=== PATIENT | female | born 1960 | race Caucasian/White ===

== ENCOUNTER → 2017-03-20 | Outpatient (CLI) | payer BC ==
[~2017-03-20] MED LIST: BIOTIN PO; CRAN1TAB5 PO; LISI-170 PO; MULT1TAB9 PO; OM-31CAP4 PO; VITAMIN B12 PO
== END | disposition home or self-care (01) ==
LOC: CFH 07:10
PROVIDERS: ATTEND Family Medicine
DX: Z13.820 Encounter for screening for osteoporosis (principal); E04.1 Nontoxic single thyroid nodule; N95.1 Menopausal and female climacteric states; R05 Cough; R06.2 Wheezing; Z78.0 Asymptomatic menopausal state
CPT/HCPCS: 71046; 76536; 77080

== ENCOUNTER 2018-01-07 10:54 | Inpatient (IN) | payer BC ==
[~2018-01-07] VITALS: Ht 177.8 cm; Wt 86.2 kg
[2018-01-07] MEDS ORDERED: LEVO25TA4 PO (11:29)
[2018-01-07] MEDS ORDERED: CHOL400C11 PO (11:30)
[2018-01-07] MEDS ORDERED: OMNIPAQUE 350 MG/ML, 100ML BOTTLE ONE (12:15)
[2018-01-07 12:46] LABS: MEAN CORPUSCULAR HEMOGLOBIN 27.5 pg (27.0-34.8); MEAN CORPUSCULAR HGB CONC 32.4 g/dL (32.4-35.8); MEAN CORPUSCULAR VOLUME 84.6 fL (80-100); MEAN PLATELET VOLUME 8.3 fL (7.4-10.4); PLATELET COUNT 320 x10^3/uL (130-400); RED BLOOD COUNT 5.94 x10^6/uL (3.82-5.3); RED CELL DISTRIBUTION WIDTH 15.6 % (9.6-15.2)
[2018-01-07 13:12] LABS: CHLORIDE 106 mmol/L (98-107)
[2018-01-07 13:15] LABS: BASOPHILS # (AUTO) 0.02 x10^3/uL (0-0.1); BASOPHILS % (AUTO) 0 % (0-1); EOSINOPHILS # (AUTO) 0.07 x10^3/uL (0-0.4); EOSINOPHILS % (AUTO) 0 % (1-7); LYMPHOCYTES # (AUTO) 0.81 x10^3/uL (1-3.4); LYMPHOCYTES % (AUTO) 5 % (22-44); MD SCAN; MONOCYTES # (AUTO) 0.62 x10^3/uL (0.2-0.8); MONOCYTES % (AUTO) 4 % (2-9); NEUTROPHILS # (AUTO) 15.97 x10^3/uL (1.8-6.8); NEUTROPHILS % (AUTO) 91 % (42-75)
[2018-01-07 13:22] LABS: ALANINE AMINOTRANSFERASE 25 U/L (12-78); ALBUMIN 3.1 g/dL (3.4-5.0); ALKALINE PHOSPHATASE 97 U/L (45-117); ANION GAP 11 mmol/L (5-15); BILIRUBIN,TOTAL 0.6 mg/dL (0.2-1.0); CALCIUM 8.6 mg/dL (8.5-10.1); CREATININE 0.77 mg/dL (0.55-1.02); TOTAL PROTEIN 9.2 g/dL (6.4-8.2); TROPONIN I < 0.015 ng/mL (0.000-0.045)
[2018-01-07] MEDS ORDERED: methylPREDNISolone SOD SUCC 125 MG/2 ML IVPush ONE (13:47)
[2018-01-07] MEDS ORDERED: CEFTRIAXONE 1,000 MG in SODIUM CHLORIDE 0.9% 50 ML IVPB ONE (14:00)
[2018-01-07] MEDS ORDERED: CEFTRIAXONE PMX 1GM/50ML 50 ML ONE (14:33)
[2018-01-07] MEDS ORDERED: AZITHROMYCIN 500 MG TABLET ONE (14:33)
[2018-01-07] MEDS ORDERED: methylPREDNISolone SOD SUCC 125 MG/2 ML ONE (14:33)
[2018-01-07] MEDS: AZITHROMYCIN 500 MG TABLET PO ONE ×2 (14:41→15:02)
[2018-01-07] MEDS ORDERED: GUAIFENESIN/DM 200-20MG, 10ML UDC PO PRN (15:00)
[2018-01-07] MEDS ORDERED: POLYETHYLENE GLYCOL 17 GM PACKET PO PRN (15:00)
[2018-01-07] MEDS ORDERED: CEFTRIAXONE PMX 1GM/50ML 50 ML IV SCH (15:00)
[2018-01-07] MEDS ORDERED: ACETAMINOPHEN 325 MG TABLET PO PRN (15:00)
[2018-01-07] MEDS ORDERED: ONDANSETRON 2MG/ML, 2ML IVPush PRN (15:00)
[2018-01-07 15:46] VITALS: BP 158/90
[2018-01-07] MEDS: SODIUM CHLORIDE 0.9% 1,000 ML IV SCH (16:18)
[2018-01-07 17:39] LABS: RAPID INFLUENZA A Negative (Negative); RAPID INFLUENZA B Negative (Negative)
[2018-01-07 19:03] VITALS: BP 148/86
[2018-01-07] MEDS: ENOXAPARIN 40 MG/0.4 ML SQ SCH (19:30)
[2018-01-07] MEDS: methylPREDNISolone SOD SUCC 125 MG/2 ML IVPush SCH (19:32)
[2018-01-08 01:13] VITALS: BP 132/78
[2018-01-08] MEDS: SODIUM CHLORIDE 0.9% 1,000 ML IV SCH (02:44)
[2018-01-08] MEDS: methylPREDNISolone SOD SUCC 125 MG/2 ML IVPush SCH ×2 (02:44→09:03)
[2018-01-08 05:41] LABS: MEAN CORPUSCULAR HEMOGLOBIN 27.8 pg (27.0-34.8); MEAN CORPUSCULAR HGB CONC 32.8 g/dL (32.4-35.8); MEAN CORPUSCULAR VOLUME 84.8 fL (80-100); MEAN PLATELET VOLUME 7.7 fL (7.4-10.4); PLATELET COUNT 332 x10^3/uL (130-400); RED BLOOD COUNT 5.44 x10^6/uL (3.82-5.3); RED CELL DISTRIBUTION WIDTH 15.3 % (9.6-15.2)
[2018-01-08 05:56] LABS: CHLORIDE 108 mmol/L (98-107)
[2018-01-08 05:59] LABS: BASOPHILS # (AUTO) 0.03 x10^3/uL (0-0.1); BASOPHILS % (AUTO) 0 % (0-1); EOSINOPHILS % (AUTO) 0 % (1-7); LYMPHOCYTES # (AUTO) 0.59 x10^3/uL (1-3.4); LYMPHOCYTES % (AUTO) 3 % (22-44); MD SCAN; MONOCYTES # (AUTO) 0.07 x10^3/uL (0.2-0.8); MONOCYTES % (AUTO) 0 % (2-9); NEUTROPHILS # (AUTO) 16.53 x10^3/uL (1.8-6.8); NEUTROPHILS % (AUTO) 96 % (42-75)
[2018-01-08 06:03] LABS: ANION GAP 7 mmol/L (5-15); CALCIUM 8.5 mg/dL (8.5-10.1); CREATININE 0.67 mg/dL (0.55-1.02)
[2018-01-08 06:42] VITALS: BP 151/81
[2018-01-08] MEDS ORDERED: LEVOTHYROXINE 88 MCG TABLET ONE (08:53)
[2018-01-08] MEDS: LEVOTHYROXINE 88 MCG TABLET PO SCH (09:00)
[2018-01-08] MEDS ORDERED: LEVOTHYROXINE 25 MCG TABLET PO SCH (09:00)
[2018-01-08] MEDS: MULTIVITAMINS WITH IRON TABLET PO SCH (09:02)
[2018-01-08] MEDS: OMEGA-3/FISH OIL CAPSULE PO SCH (09:02)
[2018-01-08] MEDS: LISINOPRIL 20 MG TABLET PO SCH (09:03)
[2018-01-08] MEDS ORDERED: LEVOTHYROXINE 88 MCG TABLET PO SCH (09:03)
[2018-01-08] MEDS ORDERED: BUTALB/APAP/CAFFEINE 50MG/325MG/40MG PO ONE (13:30)
[2018-01-08 14:51] VITALS: BP 146/83
[2018-01-08] MEDS ORDERED: AZITHROMYCIN 500 MG in SODIUM CHLORIDE 0.9% 250 ML IV SCH (15:00)
[2018-01-08 18:53] VITALS: BP 123/75
[2018-01-08] MEDS: ENOXAPARIN 40 MG/0.4 ML SQ SCH (19:10)
[2018-01-09 02:39] VITALS: BP 139/82
[2018-01-09] MEDS: OMEGA-3/FISH OIL CAPSULE PO SCH (08:37)
[2018-01-09] MEDS: MULTIVITAMINS WITH IRON TABLET PO SCH (08:37)
[2018-01-09] MEDS: LEVOTHYROXINE 88 MCG TABLET PO SCH (08:38)
[2018-01-09] MEDS: LISINOPRIL 20 MG TABLET PO SCH (08:38)
[2018-01-09] MEDS ORDERED: ALBU8.5H8 INH (11:06)
[2018-01-09] MEDS ORDERED: AMOX1TAB61 PO (11:06)
[2018-01-09] MEDS ORDERED: METH4TAB2 PO (11:06)
[2018-01-09 14:14] VITALS: BP 145/86
== END 2018-01-09 15:35 | disposition home or self-care (01) | DRG 193 ==
LOC: ED 14:11 → EDIP 14:15 → 3NE 15:44 → DCLOUNGE 01-09 15:15
PROVIDERS: ADMIT Hospitalist; ATTEND Hospitalist
DX: J18.9 Pneumonia, unspecified organism (principal); J96.01 Acute respiratory failure with hypoxia; E66.9 Obesity, unspecified; F17.210 Nicotine dependence, cigarettes, uncomplicated; E03.9 Hypothyroidism, unspecified; I10 Essential (primary) hypertension; Z80.0 Family history of malignant neoplasm of digestive organs; Z82.49 Family history of ischemic heart disease and other diseases of the circulatory system; Z88.2 Allergy status to sulfonamides; Z68.27 Body mass index [BMI] 27.0-27.9, adult
CPT/HCPCS: 36415; 71275; 80048; 80053; 83605; 83735; 84100; 84484; 85025; 85379; 87040; 87400; 93005; 93306; 96374; 99285; G0378; J0696; Q9967; J2930; J7030; J7512

== ENCOUNTER 2018-05-25 12:50 | Emergency (ER) | payer BC ==
[~2018-05-25] VITALS: Ht 177.8 cm; Wt 85.0 kg
[~2018-05-25 12:50] MED LIST changes: +ALBU8.5H8 INH; +AMOX1TAB61 PO; +CHOL400C11 PO; +LEVO25TA4 PO; +METH4TAB2 PO
[2018-05-25] MEDS ORDERED: PLEASE ENTER HEIGHT AND WEIGHT MC SCH (13:30)
[2018-05-25] MEDS ORDERED: SODIUM CHLORIDE FLUSH 10ML SYR IVF ONE (13:30)
[2018-05-25 13:46] LABS: MEAN CORPUSCULAR HEMOGLOBIN 29.5 pg (27.0-34.8); MEAN CORPUSCULAR HGB CONC 32.5 g/dL (32.4-35.8); MEAN CORPUSCULAR VOLUME 90.8 fL (80-100); MEAN PLATELET VOLUME 7.3 fL (7.4-10.4); PLATELET COUNT 371 x10^3/uL (130-400); RED BLOOD COUNT 5.51 x10^6/uL (3.82-5.3); RED CELL DISTRIBUTION WIDTH 14.1 % (9.6-15.2)
[2018-05-25 14:00] LABS: CHLORIDE 108 mmol/L (98-107)
[2018-05-25 14:01] LABS: ALANINE AMINOTRANSFERASE 30 U/L (12-78); ALBUMIN 3.1 g/dL (3.4-5.0); ANION GAP 6 mmol/L (5-15); CALCIUM 8.9 mg/dL (8.5-10.1); CREATININE 0.82 mg/dL (0.55-1.02)
[2018-05-25 14:05] LABS: ALKALINE PHOSPHATASE 70 U/L (45-117); BILIRUBIN,TOTAL 0.4 mg/dL (0.2-1.0); TOTAL PROTEIN 8.2 g/dL (6.4-8.2); TROPONIN I < 0.015 ng/mL (0.000-0.045)
[2018-05-25 14:14] LABS: MD SCAN
[2018-05-25 14:15] LABS: BASOPHILS # (AUTO) 0.01 x10^3/uL (0-0.1); BASOPHILS % (AUTO) 0 % (0-1); EOSINOPHILS # (AUTO) 0.15 x10^3/uL (0-0.4); EOSINOPHILS % (AUTO) 1 % (1-7); LYMPHOCYTES # (AUTO) 0.81 x10^3/uL (1-3.4); LYMPHOCYTES % (AUTO) 5 % (22-44); MONOCYTES # (AUTO) 0.65 x10^3/uL (0.2-0.8); MONOCYTES % (AUTO) 4 % (2-9); NEUTROPHILS # (AUTO) 16.05 x10^3/uL (1.8-6.8); NEUTROPHILS % (AUTO) 91 % (42-75)
--- NOTE | 2018-05-25 15:24 | NUR ---
pt ambulated from lobby to room
--- NOTE | 2018-05-25 15:43 | NUR ---
pt 86% on RA placed on 3L O2, sats >90%. pt denies cp, just feels sob, especially with exertion. pt was seen here in january and diagnosed with pneumonitis. has seen rama's data analyst and was given a few meds. she stopped taking the simbicort she was prescribed because of the side effects, started retaking them on sunday because she was feeling so sob.
[2018-05-25] MEDS ORDERED: ALBUTEROL/IPRATROPIUM 2.5MG/0.5MG, 3 ML ONE (16:55)
[2018-05-25] MEDS ORDERED: ALBUTEROL/IPRATROPIUM 2.5MG/0.5MG, 3 ML NPPB SCH (17:00)
--- NOTE | 2018-05-25 17:00 | NUR ---
pt medicated per emar. rt at bedside for treatment
[2018-05-25 17:31] VITALS: BP 155/77
== END 2018-05-25 18:02 | disposition home or self-care (01) ==
LOC: ED 15:48
DX: J45.901 Unspecified asthma with (acute) exacerbation (principal); R09.02 Hypoxemia; I10 Essential (primary) hypertension; Z87.891 Personal history of nicotine dependence
CPT/HCPCS: 36415; 71045; 80053; 83690; 84484; 85025; 93005; 94640; 99284; J7512; J7620